=== PATIENT | female | born 1945 | race Caucasian/White ===

== ENCOUNTER 2017-06-25 12:52 | Outpatient (CLI) | payer BC, MEDICARE | END 2017-06-25 12:53 | disposition home or self-care (01) | LOC: BICMAMMO 12:52 | PROVIDERS: ATTEND Internal Medicine | DX: Z12.31 Encounter for screening mammogram for malignant neoplasm of breast (principal) | CPT/HCPCS: 77063; 77067 ==

== ENCOUNTER 2017-07-23 08:18 | Outpatient (CLI) | payer BC, MEDICARE | END 2017-07-23 08:19 | disposition home or self-care (01) | LOC: BICMAMMO 08:18 | PROVIDERS: ATTEND Internal Medicine | DX: Z13.820 Encounter for screening for osteoporosis (principal); M85.80 Other specified disorders of bone density and structure, unspecified site | CPT/HCPCS: 77080 ==

== ENCOUNTER 2018-02-08 12:59 | Outpatient (CLI) | payer BC ==
--- NOTE | 2018-02-08 16:26 | CT ---
CT NECK WITH CONTRAST: Date: 02/08/18 HISTORY: 72-year-old female with Neck swelling, mass (3 x 3.5 cm), dysphagia, dyspnea, hoarseness, pain, an d tenderness. Suspect/rule out neck mass. COMPARISON: None. FINDINGS: Bilateral submandibular glands are symmetrically mildly enlarged. There is mild symmetrical ductal ec gris within the submandibular glands themselves. No evidence of ectasia involving Pl[place]'s ducts or Stensen's ducts. No fat stranding around the submandibular glands. The bilateral parotid glands have a normal appearance. No sialolith is identified, but streak artifact from dental work could obscure one. No evidence of abscess, solid mass, or cystic mass in the neck. There is a nonspecific finding of an approximately 1.5 x 1 x 1 cm subtle focal region of increased en hancement within the left mylohyoid muscle, just inferior to the sublingual space (axial image 47 of 128, series 3; coronal image 23 of 103, series 602). Diffuse, heterogeneous attenuation of the left and right lobes of the thyroid gland, suggestive of mu ltinodular goiter. The larynx is normal. Minimal atherosclerosis of proximal left internal carotid ar masha. Otherwise, the carotid, parotid, retropharyngeal, parapharyngeal, perivertebral, senior living advisor, an d posterior cervical, spaces, are normal. Left medial apical pulmonary scar. Trachea is patent and cl ear. No significant cervical lymphadenopathy by size criteria. Normal larynx. No gross opacification of bilateral tympanomastoid cavities, sphenoid sinus, or maxillary sinuses. No gross asymmetry of pha ryngeal mucosal space. IMPRESSION: 1. The bilateral submandibular glands are bilaterally symmetrically mildly enlarged and have interna l ductal ectasia. This could represent bilateral submandibular sialadenitis. 2. Focal area of increased enhancement in what appears to be the left mylohyoid muscle rather than w ithin the sublingual space. Exact etiology is uncertain. Possibilities include venous malformation. N eoplasm would be unlikely if it is indeed actually in the muscle rather than involving a sublingual g land. Recommend clinical correlation (palpation and visualization of the left floor of mouth). Furthe r evaluation with MRI of the floor of mouth/submandibular region is also recommended. POS: [facility]
== END 2018-02-08 13:00 | disposition home or self-care (01) ==
LOC: SCSCT 12:59
PROVIDERS: ATTEND Otolaryngology Plastic Surgery within the Head & Neck
DX: R22.1 Localized swelling, mass and lump, neck (principal); E04.1 Nontoxic single thyroid nodule; K11.1 Hypertrophy of salivary gland; K11.8 Other diseases of salivary glands
CPT/HCPCS: 70491; 82565

== ENCOUNTER 2023-01-19 11:39 | Outpatient (CLI) | payer MEDICARE, BC | END 2023-01-19 11:40 | disposition home or self-care (01) | LOC: BICMAMMO 11:39 | PROVIDERS: ATTEND Internal Medicine | DX: Z12.31 Encounter for screening mammogram for malignant neoplasm of breast (principal) | CPT/HCPCS: 77063; 77067 ==